=== PATIENT | male | born 1965 | race American Indian/Alaskan Native ===

== ENCOUNTER 2018-07-05 11:36 | Emergency (ER) | payer MEDICAID ==
[2018-07-05] MEDS ORDERED: cloNIDine 0.1 MG Tab PO ONE (11:53)
--- NOTE | 2018-07-05 12:00 | EDM.PDOC ---
ED HPI GENERAL MEDICAL PROBLEM - General Chief Complaint: Cardiovascular Problem Stated Complaint: LIGHT HEADED Time Seen by Provider: 07/05/18 11:57 Source of Information: Reports: Patient History Limitations: Reports: No Limitations - History of Present Illness INITIAL COMMENTS - FREE TEXT/NARRATIVE: been out of his BP Rx a year was working but now in half [address] house, been having WATSON since thursday usually sleep helps but not going away, today got light headed dizzy, usually eating candy bar helps, then got worried and came here. denies CP/SOB, only has WATSON & light headed. Headache Pain Score (Numeric/FACES): 7 - Related Data Allergies Allergy/AdvReac Type Severity Reaction Status Date / Time No Known Allergies Allergy Verified 07/05/18 11:44 Home Meds: Home Meds . [No Known Home Meds] 07/05/18 [History] Past Medical History Cardiovascular History: Reports: Hypertension Gastrointestinal History: Reports: Hiatal Hernia Social & Family History - Tobacco Use Smoking Status *Q: Never Smoker Second Hand Smoke Exposure: No - Recreational Drug Use Recreational Drug Use: No ED ROS GENERAL - Review of Systems Review Of Systems: ROS reveals no pertinent complaints other than HPI. ED EXAM, GENERAL - Physical Exam Exam: See Below Exam Limited By: No Limitations General Appearance: Alert, WD/WN, Mild Distress, Other (discomfort) Eye Exam: Bilateral Eye: PERRL (pupils ER @ 4mm) Ears: Hearing Grossly Normal Throat/Mouth: Normal Voice, No Airway Compromise Head: Atraumatic Neck: Non-Tender, Full Range of Motion Respiratory/Chest: No Respiratory Distress Cardiovascular: Regular Rate, Rhythm GI/Abdominal: Soft, Non-Tender Neurological: Alert, Oriented, Normal Cognition, Normal Gait, No Motor/Sensory Deficits Psychiatric: Flat Affect Skin Exam: Warm, Dry, Normal Color Lymphatic: No Adenopathy Course - Vital Signs Last Recorded V/S: Last Vital Signs Temp 36.6 C 07/05/18 11:39 Pulse 86 07/05/18 11:39 Resp 18 07/05/18 11:39 BP 185/113 H 07/05/18 12:01 Pulse Ox 97 07/05/18 11:39 - Orders/Labs/Meds Orders: Active Orders 24 hr Category Date Time Status Blood Glucose Check, Bedside [RC] ONETIME Care 07/05/18 11:49 Active EKG Documentation Completion [RC] STAT Care 07/05/18 11:56 Active Labs: Laboratory Tests 07/05/18 07/05/18 07/05/18 Range/Units 11:50 12:06 12:06 WBC 8.6 (5.0-10.0) 10^3/uL RBC 5.32 (4.6-6.2) 10^6/uL Hgb 15.9 (14.0-18.0) g/dL Hct 45.7 (40.0-54.0) % MCV 85.9 (80-100) fL MCH 29.9 (27.0-34.0) pg MCHC 34.8 (33.0-35.0) g/dL Plt Count 232 (150-450) 10^3/uL Neut % (Auto) 42.9 (42.2-75.2) % Lymph % (Auto) 44.0 (20.5-50.1) % Oliver % (Auto) 8.5 H (2-8) % Eos % (Auto) 4.1 H (1.0-3.0) % Baso % (Auto) 0.5 (0.0-1.0) % Sodium 136 (135-145) mmol/L Potassium 3.2 L (3.6-5.0) mmol/L Chloride 104 (101-111) mmol/L Carbon Dioxide 22.0 (21.0-31.0) mmol/L Anion Gap 13.2 BUN 6 L (7-18) mg/dL Creatinine 0.7 (0.6-1.3) mg/dL Est Cr Clr Drug Dosing 130.36 mL/min Estimated GFR (MDRD) > 60 BUN/Creatinine Ratio 8.57 Glucose 87 (74-105) mg/dL POC Glucose 69 L (70-105) mg/dl Calcium 8.8 (8.4-10.2) mg/dl Total Bilirubin 1.7 H (0.2-1.0) mg/dL AST 36 (10-42) IU/L ALT 47 (10-60) IU/L Alkaline Phosphatase 91 (42-121) IU/L Troponin I < 0.02 (0.00-0.02) ng/ml Total Protein 8.5 H (6.7-8.2) g/dl Albumin 4.3 (3.2-5.5) g/dl Globulin 4.2 Albumin/Globulin Ratio 1.02 Meds: Medications Discontinued Medications Generic Name Dose Route Start Last Admin Trade Name Kalpesh PRN Reason Stop Dose Admin Clonidine HCl 0.1 mg 07/05/18 11:53 07/05/18 12:01 Catapres PO 07/05/18 11:54 0.1 mg ONETIME ONE Administration - Re-Assessments/Exams Free Text/Narrative Re-Assessment/Exam: 07/05/18 12:53 results discussed with pt who is feeling much better now. ate lunch tray and BP 160/99, no WATSON or dizzy Departure - Departure Time of Disposition: 12:54 Disposition: Home, Self-Care 01 Condition: Fair Clinical Impression: Hypertension Qualifiers: Hypertension type: unspecified Qualified Code(s): I10 - Essential (primary) hypertension Instructions: Hypertension, [id number] Forms: ED Department Discharge Additional Instructions: 1) see clinic tomorrow for BP meds 2) recheck as needed rx given; catapress 0.1mg daily x 6 - My Orders Last 24 Hours: My Active Orders 07/05/18 11:49 Blood Glucose Check, Bedside [RC] ONETIME 07/05/18 11:56 EKG Documentation Completion [RC] STAT - Assessment/Plan Last 24 Hours: My Active Orders 07/05/18 11:49 Blood Glucose Check, Bedside [RC] ONETIME 07/05/18 11:56 EKG Documentation Completion [RC] STAT
[2018-07-05 12:41] LABS: ANION GAP 13.2; CHLORIDE,CL 104 mmol/L (101-111); SODIUM,NA 136 mmol/L (135-145)
== END 2018-07-05 13:04 | disposition home or self-care (01) ==
LOC: DL.ED 11:36
DX: I10 Essential (primary) hypertension (principal)
CPT/HCPCS: 36415; 80053; 82962; 84484; 85025; 99283; A9270

== ENCOUNTER 2018-10-24 23:32 | Emergency (ER) | payer MEDICAID ==
[2018-10-24] MEDS: Famotidine 20 MG Tab PO ONE (23:43)
[2018-10-24] MEDS: GI Cocktail Oral Solution 30 ML PO ONE (23:43)
--- NOTE | 2018-10-24 23:45 | EDM.PDOC ---
ED HPI GENERAL MEDICAL PROBLEM - General Stated Complaint: STOMACH Time Seen by Provider: 10/24/18 23:40 Source of Information: Reports: Patient History Limitations: Reports: No Limitations - History of Present Illness INITIAL COMMENTS - FREE TEXT/NARRATIVE: c/o recurrent exac. ate cinnamon apple roll breakfast, later the day had can of corn then tonight had peanut butter sandwich and soon after stomach pain returned. been taking OTC prilosec too. Epigastric Pain Score (Numeric/FACES): 8 - Related Data Allergies Allergy/AdvReac Type Severity Reaction Status Date / Time morphine Allergy Cannot Verified 10/24/18 23:48 Remember Home Meds: Home Meds Losartan [Cozaar] 50 mg PO DAILY 10/24/18 [History] hydroCHLOROthiazide [Hydrochlorothiazide] 25 mg PO DAILY 10/24/18 [History] Past Medical History Cardiovascular History: Reports: Hypertension Gastrointestinal History: Reports: Hiatal Hernia - Past Surgical History GI Surgical History: Reports: Cholecystectomy Social & Family History - Family History Family Medical History: Noncontributory - Caffeine Use Caffeine Use: Reports: Coffee, Soda ED ROS GENERAL - Review of Systems Review Of Systems: ROS reveals no pertinent complaints other than HPI. ED EXAM, GI/ABD - Physical Exam Exam: See Below Exam Limited By: No Limitations General Appearance: Alert, WD/WN, Anxious, Mild Distress Ears: Hearing Grossly Normal Throat/Mouth: Normal Voice, No Airway Compromise Head: Atraumatic Neck: Non-Tender, Full Range of Motion Respiratory/Chest: No Respiratory Distress Cardiovascular: Regular Rate, Rhythm GI/Abdominal Exam: Soft, Tender, Abnormal Bowel Sounds, Other (epiG discomfort, hyper BS). No: Distended, Guarding, Rigid, Rebound Neurological: Alert, Oriented, Normal Cognition, Normal Gait, No Motor/Sensory Deficits Psychiatric: Anxious Skin Exam: Warm, Dry, Normal Color Lymphatic: No Adenopathy Course - Vital Signs Last Recorded V/S: Last Vital Signs Temp 36.8 C 10/24/18 23:49 Pulse 76 10/24/18 23:49 Resp 16 10/24/18 23:49 BP 134/117 H 10/24/18 23:49 Pulse Ox 100 10/24/18 23:49 - Orders/Labs/Meds Meds: Medications Discontinued Medications Generic Name Dose Route Start Last Admin Trade Name Freq PRN Reason Stop Dose Admin Al Hydroxide/Mg Hydroxide 30 ml 10/24/18 23:38 10/24/18 23:43 Gi Cocktail PO 10/24/18 23:39 30 ml ONETIME ONE Administration Famotidine 20 mg 10/24/18 23:38 10/24/18 23:43 Pepcid PO 10/24/18 23:39 20 mg ONETIME ONE Administration - Re-Assessments/Exams Free Text/Narrative Re-Assessment/Exam: 10/25/18 00:02 re-exam; s/p GI + pepcid = much better pain all gone Departure - Departure Time of Disposition: 00:02 Disposition: Home, Self-Care 01 Condition: Good Clinical Impression: GERD with esophagitis - Discharge Information Instructions: Food Choices for Gastroesophageal Reflux Disease, Adult Additional Instructions: 1) call Dr Velasquez office tomorrow for GASTROSCOPY APPOINTMENT
== END 2018-10-25 00:05 | disposition home or self-care (01) ==
LOC: DL.ED 23:32
DX: K21.0 Gastro-esophageal reflux disease with esophagitis (principal); I10 Essential (primary) hypertension; Z79.899 Other long term (current) drug therapy; Z88.5 Allergy status to narcotic agent
CPT/HCPCS: 36415; 80053; 82150; 83690; 84484; 85025; 93005; 99282; 99284; A9270